=== PATIENT | female | born 2000 | race Caucasian/White ===

== ENCOUNTER 2020-06-23 02:45 | Emergency (ER) | payer OTHER ==
[~2020-06-23] VITALS: Ht 162.6 cm; Wt 86.4 kg
[2020-06-23 03:27] VITALS: BP 137/87; PULSE 88; TEMP 99.4
[2020-06-23] MEDS ORDERED: TUSS PO (14:40)
== END 2020-06-23 04:46 | disposition home or self-care (01) ==
LOC: COL.ER 02:45
DX: J06.9 Acute upper respiratory infection, unspecified (principal); Z20.828 Contact with and (suspected) exposure to other viral communicable diseases; Z88.0 Allergy status to penicillin; Z88.1 Allergy status to other antibiotic agents